=== PATIENT | female | born 1985 | race Caucasian/White ===

== ENCOUNTER 2016-06-24 10:56 | Emergency (ER) | payer SELFPAY ==
[~2016-06-24] VITALS: Ht 167.6 cm; Wt 95.0 kg
[~2016-06-24 10:56] MED LIST: AMOXICILLIN500 MG PO; BACTRIM DS1 TAB PO; CIPROFLOXACN500 MG PO; CLARITIN10 M1 PO; CORTISPORIN OTI10 M2 AD; DEPO-PROVER150 MG/ML IM; FLEXERIL PO; FLUZONE SPLT1 M1 IM; MEDDOSEPAK PO; MULTIVITAMI1 OR; NAPROSYN500 MG PO; PERCOCET 5/325M1 TAB PO; PRENATA3 OR; PRENATAL MV OR; PROMETRIUM200 MG PO; VENTOLIN HFA IN; VITAMIN B-12100 MCG PO; ZITHROMAX Z-PAK1 TAB PO; ZITHROMAX250 MG PO; ZOFRAN ODT4 MG PO; ZPAK PO
[2016-06-24 12:38] LABS: URINE BILIRUBIN - DIPSTICK NEGATIVE (NEGATIVE); URINE BLOOD DIPSTICK NEGATIVE (NEGATIVE); URINE CLARITY CLEAR; URINE COLOR YELLOW; URINE GLUCOSE - DIPSTICK NEGATIVE (NEGATIVE); URINE KETONE NEGATIVE (NEGATIVE); URINE LEUK ESTERASE NEGATIVE (NEGATIVE); URINE NITRITE - DIPSTICK NEGATIVE (Negative); URINE PH 6.5 (4.5-8.0); URINE PROTEIN - DIPSTICK NEGATIVE (NEG-TRACE); URINE UROBILINOGEN - DIPSTICK 0.2 E.U./dL (0.2)
[2016-06-24 12:39] LABS: HEMATOCRIT 40.1 % (37.0-47.0); HEMOGLOBIN 13.2 g/dl (12.0-16.0); IMMATURE GRANULOCYTES 1.3 % (0.0-1.0); MEAN CELL VOLUME 83.9 fL CALC (80.0-100.0); MEAN CORPUSCULAR HGB 27.6 pG CALC (26.0-32.0); MEAN CORPUSCULAR HGB CONC 32.9 g/L CALC (32.0-36.0); NEUT# 6.95 thou/uL (2.00-7.15); RED BLOOD COUNT 4.78 mill/uL (4.20-5.60); RED CELL DISTRI WIDTH 14.2 % (11.5-15.5)
[2016-06-24 12:53] LABS: ALKALINE PHOSPHATASE 87 u/l (38-126); AMYLASE < 30 u/l (30-110); ANION GAP 15 (6-22 (CALC)); BILIRUBIN, TOTAL 0.4 mg/dL (0.0-1.4); BUN 12 mg/dL (7-17); BUN/CREATININE RATIO 15 (12-20 (CALC)); CARBON DIOXIDE 23 mmol/l (22-30); CHLORIDE 105 mmol/l (95-108); CREATININE 0.8 mg/dL (0.5-1.0); GFR > 60 ML/MIN (>=60 (CALC)); GFR FOR AFR.AMER. > 60 ML/MIN (>=60 (CALC)); GLUCOSE 83 mg/dL (65-105); LIPASE 81 u/l (23-300); POTASSIUM 4.6 mmol/l (3.5-5.1); SGOT/AST 16 u/l (14-36); SGPT/ALT 29 u/l (9-52); SODIUM 139 mmol/l (137-146); TOTAL PROTEIN 7.4 g/dL (6.3-8.2)
[2016-06-24] MEDS ORDERED: ZOFRAN ODT4 MG PO (13:19)
[2016-06-24] MEDS ORDERED: CIPROFLOXACN500 MG PO (13:19)
[2016-06-24] MEDS ORDERED: ULTRAM50 M1 PO (13:19)
[2016-06-24 13:40] VITALS: BP 110/54
== END 2016-06-24 13:57 | disposition home or self-care (01) | DRG 392 ==
LOC: ED 10:56
PROVIDERS: Emergency Medicine
DX: K52.9 Noninfective gastroenteritis and colitis, unspecified (principal); R11.2 Nausea with vomiting, unspecified; R10.13 Epigastric pain; R10.32 Left lower quadrant pain; R10.12 Left upper quadrant pain

== ENCOUNTER 2017-09-14 10:43 | Emergency (ER) | payer OTHER ==
[~2017-09-14] VITALS: Ht 167.6 cm; Wt 95.0 kg
[~2017-09-14 10:43] MED LIST changes: +ULTRAM50 M1 PO
[2017-09-14 12:05] LABS: URINE BILIRUBIN - DIPSTICK NEGATIVE (NEGATIVE); URINE BLOOD DIPSTICK NEGATIVE (NEGATIVE); URINE CLARITY CLEAR; URINE COLOR YELLOW; URINE GLUCOSE - DIPSTICK NEGATIVE (NEGATIVE); URINE KETONE 15 mg/dL (NEGATIVE); URINE LEUK ESTERASE NEGATIVE (Negative); URINE NITRITE - DIPSTICK NEGATIVE (Negative); URINE PROTEIN - DIPSTICK NEGATIVE (NEG-TRACE); URINE SPECIFIC GRAVITY >=1.030; URINE UROBILINOGEN - DIPSTICK 0.2 E.U./dL (0.2)
[2017-09-14 12:30] VITALS: BP 129/85
== END 2017-09-14 12:30 | disposition home or self-care (01) | DRG 552 ==
LOC: ED 10:43
DX: M62.830 Muscle spasm of back (principal); Z33.1 Pregnant state, incidental; V48.5XXA Car driver injured in noncollision transport accident in traffic accident, initial encounter

== ENCOUNTER 2018-11-19 14:19 | Emergency (ER) | payer OTHER ==
[~2018-11-19] VITALS: Ht 167.6 cm; Wt 90.0 kg
[2018-11-19] MEDS ORDERED: FLEXERIL5 M1 PO (16:29)
[2018-11-19 16:46] VITALS: BP 121/60
== END 2018-11-19 16:40 | disposition home or self-care (01) | DRG 552 ==
LOC: ED 14:19
DX: M54.2 Cervicalgia (principal); M62.838 Other muscle spasm; V49.40XA Driver injured in collision with unspecified motor vehicles in traffic accident, initial encounter

== ENCOUNTER 2018-12-21 16:07 | Emergency (ER) | payer SELFPAY ==
[~2018-12-21] VITALS: Ht 167.6 cm; Wt 98.2 kg
[~2018-12-21 16:07] MED LIST changes: +FLEXERIL5 M1 PO
[2018-12-21] MEDS ORDERED: PREDNISONE10 MG PO (17:13)
[2018-12-21] MEDS ORDERED: PEPCID20 MG PO (17:13)
[2018-12-21] MEDS ORDERED: EPIPEN 2-P0.3 MG/0.3 IM (17:13)
[2018-12-21 17:40] VITALS: BP 121/68
== END 2018-12-21 17:43 | disposition home or self-care (01) | DRG 918 ==
LOC: ED 16:07
DX: T63.461A Toxic effect of venom of wasps, accidental (unintentional), initial encounter (principal)

== ENCOUNTER 2019-06-07 | Emergency (ER) | payer MEDICAID ==
[~2019-06-07] MED LIST changes: +EPIPEN 2-P0.3 MG/0.3 IM; +PEPCID20 MG PO; +PREDNISONE10 MG PO
[2019-06-07] MEDS ORDERED: GABAPENTIN100 MG PO (21:04)
[2019-06-07 22:07] LABS: HEMATOCRIT 40.6 % (37.0-47.0); HEMOGLOBIN 13.3 g/dl (12.0-16.0); IMMATURE GRANULOCYTES 1.2 % (0.0-5.0); MEAN CELL VOLUME 86.4 fL CALC (80.0-100.0); MEAN CORPUSCULAR HGB 28.3 pG CALC (26.0-32.0); MEAN CORPUSCULAR HGB CONC 32.8 g/L CALC (32.0-36.0); NEUT# 8.57 thou/uL (2.00-7.15); RED BLOOD COUNT 4.7 mill/uL (4.20-5.60); RED CELL DISTRI WIDTH 13.9 % (11.5-15.5)
[2019-06-07 22:11] LABS: URINE BILIRUBIN - DIPSTICK NEGATIVE (NEGATIVE); URINE BLOOD DIPSTICK NEGATIVE (NEGATIVE); URINE COLOR YELLOW; URINE GLUCOSE - DIPSTICK NEGATIVE (NEGATIVE); URINE KETONE NEGATIVE (NEGATIVE); URINE LEUK ESTERASE NEGATIVE (NEGATIVE); URINE NITRITE - DIPSTICK NEGATIVE (Negative); URINE PH 7.5 (4.5-8.0); URINE PROTEIN - DIPSTICK NEGATIVE (NEG-TRACE); URINE SPECIFIC GRAVITY 1.025; URINE UROBILINOGEN - DIPSTICK 0.2 E.U./dL (0.2)
[2019-06-07 23:03] LABS: ALBUMIN 3.7 g/dL (3.2-5.0); ALKALINE PHOSPHATASE 73 u/l (38-126); AMYLASE 35 u/l (30-110); ANION GAP 11 (6-22 (CALC)); BILIRUBIN, TOTAL 0.3 mg/dL (0.0-1.4); BUN 13 mg/dL (7-17); BUN/CREATININE RATIO 17 (12-20 (CALC)); CARBON DIOXIDE 22 mmol/l (22-30); CHLORIDE 109 mmol/l (95-108); CREATININE 0.8 mg/dL (0.5-1.0); GFR > 60 ML/MIN (>=60 (CALC)); GFR FOR AFR.AMER. > 60 ML/MIN (>=60 (CALC)); LIPASE 123 u/l (23-300); POTASSIUM 4.1 mmol/l (3.5-5.1); SGOT/AST 19 u/l (14-36); SODIUM 138 mmol/l (137-146); TOTAL PROTEIN 6.8 g/dL (6.3-8.2)
[2019-06-08] MEDS ORDERED: BACTRIM DS1 TAB PO (01:21)
[2019-06-08] MEDS ORDERED: ONDANSETRON4 MG PO (01:21)
[2019-06-08] MEDS ORDERED: LOMOTIL2.5 MG PO (01:21)
[2019-06-08] MEDS ORDERED: ULTRAM50 M1 PO (01:21)
== END 2019-06-08 01:30 | disposition home or self-care (01) ==
PROVIDERS: Emergency Medicine
DX: K52.9 Noninfective gastroenteritis and colitis, unspecified (principal)

== ENCOUNTER 2020-06-02 20:56 | Emergency (ER) | payer OTHER ==
[~2020-06-02] VITALS: Ht 167.6 cm; Wt 101.0 kg
[~2020-06-02 20:56] MED LIST changes: +GABAPENTIN100 MG PO; +LOMOTIL2.5 MG PO; +ONDANSETRON4 MG PO
[2020-06-02 22:19] LABS: URINE BILIRUBIN - DIPSTICK NEGATIVE (NEGATIVE); URINE BLOOD DIPSTICK NEGATIVE (NEGATIVE); URINE COLOR YELLOW; URINE GLUCOSE - DIPSTICK NEGATIVE (NEGATIVE); URINE KETONE NEGATIVE (NEGATIVE); URINE LEUK ESTERASE NEGATIVE (NEGATIVE); URINE NITRITE - DIPSTICK NEGATIVE (Negative); URINE PH 6.5 (4.5-8.0); URINE PROTEIN - DIPSTICK NEGATIVE (NEG-TRACE); URINE SPECIFIC GRAVITY 1.025
[2020-06-02 22:19] LABS: HEMATOCRIT 40.4 % (37.0-47.0); HEMOGLOBIN 12.7 g/dl (12.0-16.0); IMMATURE GRANULOCYTES 0.7 % (0.0-5.0); MEAN CELL VOLUME 86.7 fL CALC (80.0-100.0); MEAN CORPUSCULAR HGB 27.3 pG CALC (26.0-32.0); MEAN CORPUSCULAR HGB CONC 31.4 g/dL CAL (32.0-36.0); NEUT# 8.31 thou/uL (2.00-7.15); RED BLOOD COUNT 4.66 mill/uL (4.20-5.60); RED CELL DISTRI WIDTH 14.2 % (11.5-15.5)
[2020-06-02 22:33] LABS: ALKALINE PHOSPHATASE 82 u/l (38-126); AMYLASE 43 u/l (30-110); ANION GAP 13 (6-22 (CALC)); BUN 16 mg/dL (7-17); BUN/CREATININE RATIO 19 (12-20 (CALC)); CARBON DIOXIDE 26 mmol/l (22-30); CHLORIDE 105 mmol/l (95-108); CREATININE 0.9 mg/dL (0.5-1.0); GFR > 60 ML/MIN (>=60 (CALC)); GFR FOR AFR.AMER. > 60 ML/MIN (>=60 (CALC)); LIPASE 165 u/l (23-300); SGOT/AST 21 u/l (14-36); SODIUM 139 mmol/l (137-146); TOTAL PROTEIN 7.6 g/dL (6.3-8.2)
[2020-06-02 22:35] LABS: ALBUMIN 4.5 g/dL (3.2-5.0); BILIRUBIN, TOTAL 0.5 mg/dL (0.0-1.4)
[2020-06-03] MEDS ORDERED: METRONIDAZOL500 MG PO ×2 (01:00→12:45)
[2020-06-03] MEDS ORDERED: PERCOCET 5/325M1 TAB PO (01:00)
[2020-06-03] MEDS ORDERED: CIPROFLOXACN500 MG PO ×2 (01:00→12:45)
[2020-06-03 02:50] VITALS: BP 119/71
== END 2020-06-03 02:50 | disposition home or self-care (01) ==
LOC: ED 20:56
PROVIDERS: Emergency Medicine
DX: K50.10 Crohn's disease of large intestine without complications (principal)
CPT/HCPCS: Q9967

== ENCOUNTER 2020-09-21 13:58 | Emergency (ER) | payer MEDICAID ==
[~2020-09-21] VITALS: Ht 167.6 cm; Wt 104.5 kg
[~2020-09-21 13:58] MED LIST changes: +METRONIDAZOL500 MG PO
[2020-09-21 14:09] VITALS: BP 143/77
[2020-09-21 14:48] LABS: HEMATOCRIT 44.9 % (37.0-47.0); HEMOGLOBIN 14.1 g/dl (12.0-16.0); IMMATURE GRANULOCYTES 1.2 % (0.0-5.0); MEAN CELL VOLUME 86.3 fL CALC (80.0-100.0); MEAN CORPUSCULAR HGB 27.1 pG CALC (26.0-32.0); MEAN CORPUSCULAR HGB CONC 31.4 g/dL CAL (32.0-36.0); NEUT# 8.78 thou/uL (2.00-7.15); RED BLOOD COUNT 5.2 mill/uL (4.20-5.60); RED CELL DISTRI WIDTH 14.7 % (11.5-15.5)
[2020-09-21 14:56] LABS: ALBUMIN 4.2 g/dL (3.2-5.0); ALKALINE PHOSPHATASE 76 u/l (38-126); AMYLASE 38 u/l (30-110); ANION GAP 10 (6-22 (CALC)); BILIRUBIN, TOTAL 0.3 mg/dL (0.0-1.4); BUN 13 mg/dL (7-17); BUN/CREATININE RATIO 14 (12-20 (CALC)); CARBON DIOXIDE 27 mmol/l (22-30); CHLORIDE 105 mmol/l (95-108); CREATININE 0.9 mg/dL (0.5-1.0); GFR > 60 ML/MIN (>=60 (CALC)); GFR FOR AFR.AMER. > 60 ML/MIN (>=60 (CALC)); LIPASE 123 u/l (23-300); POTASSIUM 4.6 mmol/l (3.5-5.1); SGOT/AST 25 u/l (14-36); SODIUM 138 mmol/l (137-146); TOTAL PROTEIN 7.7 g/dL (6.3-8.2)
[2020-09-21 15:52] LABS: URINE BILIRUBIN - DIPSTICK NEGATIVE (NEGATIVE); URINE BLOOD DIPSTICK NEGATIVE (NEGATIVE); URINE COLOR YELLOW; URINE GLUCOSE - DIPSTICK NEGATIVE (NEGATIVE); URINE KETONE NEGATIVE (NEGATIVE); URINE LEUK ESTERASE NEGATIVE (NEGATIVE); URINE PROTEIN - DIPSTICK NEGATIVE (NEG-TRACE); URINE UROBILINOGEN - DIPSTICK 0.2 E.U./dL (0.2)
[2020-09-21 15:54] LABS: URINE NITRITE - DIPSTICK NEGATIVE (Negative)
[2020-09-21] MEDS ORDERED: CIPROFLOXACN500 MG PO (16:23)
[2020-09-21] MEDS ORDERED: ONDANSETRON4 MG PO (16:23)
[2020-09-21] MEDS ORDERED: ULTRAM50 M1 PO (16:23)
== END 2020-09-21 16:32 | disposition home or self-care (01) ==
LOC: ED 13:58
PROVIDERS: Emergency Medicine
DX: N83.202 Unspecified ovarian cyst, left side (principal); F17.210 Nicotine dependence, cigarettes, uncomplicated
CPT/HCPCS: Q9967

== ENCOUNTER 2021-07-11 13:34 | Emergency (ER) | payer MEDICAID ==
[~2021-07-11] VITALS: Ht 167.6 cm; Wt 86.3 kg
[2021-07-11 14:12] VITALS: BP 107/65
[2021-07-11 14:58] LABS: HEMATOCRIT 39.3 % (37.0-47.0); HEMOGLOBIN 12.6 g/dl (12.0-16.0); IMMATURE GRANULOCYTES 0.8 % (0.0-5.0); MEAN CELL VOLUME 87.1 fL CALC (80.0-100.0); MEAN CORPUSCULAR HGB 27.9 pG CALC (26.0-32.0); MEAN CORPUSCULAR HGB CONC 32.1 g/dL CAL (32.0-36.0); NEUT# 6.63 thou/uL (2.00-7.15); RED BLOOD COUNT 4.51 mill/uL (4.20-5.60); RED CELL DISTRI WIDTH 14.9 % (11.5-15.5)
[2021-07-11 15:08] LABS: URINE BILIRUBIN - DIPSTICK NEGATIVE (NEGATIVE); URINE BLOOD DIPSTICK LARGE (NEGATIVE); URINE COLOR YELLOW; URINE GLUCOSE - DIPSTICK NEGATIVE (NEGATIVE); URINE KETONE NEGATIVE (NEGATIVE); URINE LEUK ESTERASE NEGATIVE (NEGATIVE); URINE PH 7.5 (4.5-8.0); URINE PROTEIN - DIPSTICK NEGATIVE (NEG-TRACE); URINE SPECIFIC GRAVITY 1.025; URINE UROBILINOGEN - DIPSTICK 0.2 E.U./dL (0.2)
[2021-07-11 15:11] LABS: ALBUMIN 4.1 g/dL (3.2-5.0); ALKALINE PHOSPHATASE 62 u/l (38-126); ANION GAP 9 (6-22 (CALC)); BILIRUBIN, TOTAL 0.3 mg/dL (0.0-1.4); BUN 12 mg/dL (7-17); BUN/CREATININE RATIO 14 (12-20 (CALC)); CARBON DIOXIDE 27 mmol/l (22-30); CHLORIDE 107 mmol/l (95-108); CREATININE 0.9 mg/dL (0.5-1.0); GFR > 60 ML/MIN (>=60 (CALC)); GFR FOR AFR.AMER. > 60 ML/MIN (>=60 (CALC)); POTASSIUM 4.1 mmol/l (3.5-5.1); SGOT/AST 23 u/l (14-36); SODIUM 139 mmol/l (137-146); TOTAL PROTEIN 7.5 g/dL (6.3-8.2)
[2021-07-11 15:24] LABS: URINE NITRITE - DIPSTICK NEGATIVE (Negative)
[2021-07-11 15:28] LABS: BETA-HCG, QUANT(RESULT NUMBER) 4024 mIU/mL
[2021-07-11 15:36] LABS: URINE SQUAMOUS EPITHELIAL CELL FEW EPI/hpf (0-FEW); URINE WBC 0-2 WBC/hpf (0-5)
[2021-07-11 16:50] VITALS: BP 107/65
== END 2021-07-11 16:55 | disposition home or self-care (01) ==
LOC: ED 13:34
PROVIDERS: Internal Medicine
DX: O20.0 Threatened abortion (principal); Z3A.00 Weeks of gestation of pregnancy not specified

== ENCOUNTER 2021-07-13 06:32 | Emergency (ER) | payer OTHER ==
[2021-07-13] VITALS (10 sets, daily range): BP systolic 102–128; BP diastolic 51–82
[~2021-07-13] VITALS: Ht 167.6 cm; Wt 86.3 kg
[2021-07-13 08:05] LABS: HEMOGLOBIN 13.9 g/dl (12.0-16.0); IMMATURE GRANULOCYTES 0.8 % (0.0-5.0); MEAN CELL VOLUME 87.3 fL CALC (80.0-100.0); MEAN CORPUSCULAR HGB 27.6 pG CALC (26.0-32.0); MEAN CORPUSCULAR HGB CONC 31.6 g/dL CAL (32.0-36.0); NEUT# 6.22 thou/uL (2.00-7.15); RED BLOOD COUNT 5.04 mill/uL (4.20-5.60)
[2021-07-13 08:22] LABS: ALBUMIN 4.5 g/dL (3.2-5.0); ALKALINE PHOSPHATASE 66 u/l (38-126); ANION GAP 13 (6-22 (CALC)); BILIRUBIN, TOTAL 0.4 mg/dL (0.0-1.4); BUN 14 mg/dL (7-17); BUN/CREATININE RATIO 15 (12-20 (CALC)); CARBON DIOXIDE 24 mmol/l (22-30); CHLORIDE 106 mmol/l (95-108); CREATININE 0.9 mg/dL (0.5-1.0); GFR > 60 ML/MIN (>=60 (CALC)); GFR FOR AFR.AMER. > 60 ML/MIN (>=60 (CALC)); POTASSIUM 4.3 mmol/l (3.5-5.1); SGOT/AST 23 u/l (14-36); SODIUM 138 mmol/l (137-146); TOTAL PROTEIN 8.3 g/dL (6.3-8.2)
[2021-07-13 08:39] LABS: BETA-HCG, QUANT(RESULT NUMBER) 3979 mIU/mL
== END 2021-07-13 11:35 ==
LOC: ED 06:32
DX: O00.102 Left tubal pregnancy without intrauterine pregnancy (principal)

== ENCOUNTER 2021-09-02 07:04 | Emergency (ER) | payer OTHER ==
[~2021-09-02] VITALS: Ht 167.6 cm; Wt 92.4 kg
[2021-09-02 07:55] LABS: HEMATOCRIT 39.8 % (37.0-47.0); HEMOGLOBIN 12.5 g/dl (12.0-16.0); MEAN CELL VOLUME 87.7 fL CALC (80.0-100.0); MEAN CORPUSCULAR HGB 27.5 pG CALC (26.0-32.0); MEAN CORPUSCULAR HGB CONC 31.4 g/dL CAL (32.0-36.0); NEUT# 5.91 thou/uL (2.00-7.15); RED BLOOD COUNT 4.54 mill/uL (4.20-5.60); RED CELL DISTRI WIDTH 14.9 % (11.5-15.5)
[2021-09-02 08:09] LABS: HCG SERUM/URINE (NEG/POS) NEGATIVE (NEGATIVE)
[2021-09-02 08:10] LABS: ALKALINE PHOSPHATASE 70 u/l (38-126); ANION GAP 11 (6-22 (CALC)); BILIRUBIN, TOTAL 0.3 mg/dL (0.0-1.4); BUN 13 mg/dL (7-17); BUN/CREATININE RATIO 18 (12-20 (CALC)); CARBON DIOXIDE 22 mmol/l (22-30); CHLORIDE 108 mmol/l (95-108); CREATININE 0.8 mg/dL (0.5-1.0); GFR > 60 ML/MIN (>=60 (CALC)); GFR FOR AFR.AMER. > 60 ML/MIN (>=60 (CALC)); LIPASE 415 u/l (23-300); POTASSIUM 4.1 mmol/l (3.5-5.1); SGOT/AST 24 u/l (14-36); SODIUM 138 mmol/l (137-146); TOTAL PROTEIN 7.3 g/dL (6.3-8.2)
[2021-09-02] MEDS ORDERED: TESSALON PERLE100 MG PO (09:23)
[2021-09-02] MEDS ORDERED: PROAIR HFA IN (09:23)
[2021-09-02] MEDS ORDERED: MEDDOSEPAK PO (09:23)
[2021-09-02] MEDS ORDERED: ZPAK PO (09:23)
[2021-09-02 09:45] VITALS: BP 133/88
== END 2021-09-02 10:06 | disposition home or self-care (01) ==
LOC: ED 07:04
DX: J45.909 Unspecified asthma, uncomplicated (principal); Z87.891 Personal history of nicotine dependence; Z20.822 Contact with and (suspected) exposure to COVID-19

== ENCOUNTER 2021-09-20 11:29 | Emergency (ER) | payer OTHER ==
[~2021-09-20] VITALS: Ht 167.6 cm; Wt 90.0 kg
[~2021-09-20 11:29] MED LIST changes: +PROAIR HFA IN; +TESSALON PERLE100 MG PO
[2021-09-20 11:35] VITALS: BP 146/127
[2021-09-20 11:39] VITALS: BP 112/63
[2021-09-20 12:00] VITALS: BP 105/62
[2021-09-20 12:19] LABS: HEMATOCRIT 42.1 % (37.0-47.0); HEMOGLOBIN 13.4 g/dl (12.0-16.0); IMMATURE GRANULOCYTES 0.7 % (0.0-5.0); MEAN CELL VOLUME 87.9 fL CALC (80.0-100.0); MEAN CORPUSCULAR HGB CONC 31.8 g/dL CAL (32.0-36.0); NEUT# 6.42 thou/uL (2.00-7.15); RED BLOOD COUNT 4.79 mill/uL (4.20-5.60); RED CELL DISTRI WIDTH 15.6 % (11.5-15.5)
[2021-09-20 12:30] VITALS: BP 97/68
[2021-09-20 12:47] LABS: ALBUMIN 3.9 g/dL (3.2-5.0); ALKALINE PHOSPHATASE 77 u/l (38-126); ANION GAP 9 (6-22 (CALC)); BILIRUBIN, TOTAL 0.3 mg/dL (0.0-1.4); BUN 11 mg/dL (7-17); BUN/CREATININE RATIO 13 (12-20 (CALC)); CARBON DIOXIDE 24 mmol/l (22-30); CHLORIDE 108 mmol/l (95-108); CREATININE 0.9 mg/dL (0.5-1.0); GFR FOR AFR.AMER. > 60 ML/MIN (>=60 (CALC)); GFR OTHER RACES > 60 ML/MIN (>=60 (CALC)); POTASSIUM 3.8 mmol/l (3.5-5.1); SGOT/AST 19 u/l (14-36); SODIUM 137 mmol/l (137-146); TOTAL PROTEIN 7.2 g/dL (6.3-8.2)
[2021-09-20] MEDS ORDERED: MEDDOSEPAK PO (13:29)
[2021-09-20] MEDS ORDERED: AMOX/K CLAV875 M1 PO (13:29)
[2021-09-20] MEDS ORDERED: GUAIFENESIN AC PO (13:29)
[2021-09-20] MEDS ORDERED: ALBUTEROL SUL0.083 % IN (13:29)
[2021-09-20 13:34] VITALS: BP 97/68
== END 2021-09-20 13:46 | disposition home or self-care (01) ==
LOC: ED 11:29
DX: J45.909 Unspecified asthma, uncomplicated (principal)